=== PATIENT | female | born 1945 | race Caucasian/White ===

== ENCOUNTER 2017-09-04 19:55 | Observation (INO) | payer MEDICARE ==
[~2017-09-04] VITALS: Ht 157.5 cm; Wt 54.1 kg
[~2017-09-04 19:55] MED LIST: ACET600C PO; ASCO10007 PO; IRON150C5 PO; MULT-1085 PO; UBID50CA23 PO
[2017-09-04 21:10] LABS: BASOPHILS % (AUTO) 0.4 % (0-1); EOSINOPHILS % (AUTO) 0.3 % (0-6); HEMATOCRIT 31.4 % (35.0-45.0); HEMOGLOBIN 10.4 g/dl (12.0-16.0); LYMPHOCYTES # (AUTO) 1.2 X10'3 (1.1-4.8); LYMPHOCYTES % (AUTO) 13.2 % (21-51); MEAN CORPUSCULAR HEMOGLOBIN 27.7 PG (27.0-31.0); MEAN PLATELET VOLUME 8.3 FL (7.4-10.4); MONOCYTES # (AUTO) 0.5 X10'3 (0-0.9); MONOCYTES % (AUTO) 5.3 % (2-12); NEUTROPHILS # (AUTO) 7.3 X10'3 (1.8-7.7); NEUTROPHILS % (AUTO) 80.8 % (42-75); PLATELET COUNT 312 X10'3 (140-440); RED BLOOD COUNT 3.73 X10'6 (4.20-5.60); RED CELL DISTRIBUTION WIDTH 28.6 % (11.5-14.5)
[2017-09-04 21:25] LABS: ALANINE AMINOTRANSFERASE 205 U/L (12-78); ALBUMIN 2.8 G/DL (3.4-5.0); ALBUMIN/GLOBULIN RATIO 0.6 (1.1-1.5); ALKALINE PHOSPHATASE 370 IU/L (46-116); ANION GAP 10 (8-16); ASPARTATE AMINO TRANSFERASE 155 U/L (10-37); BILIRUBIN,TOTAL 0.9 MG/DL (0.1-1.0); BLOOD UREA NITROGEN 19 MG/DL (7-18); BUN/CREATININE RATIO 23.8 (6.6-38.0); CALCIUM 8.4 MG/DL (8.5-10.1); CHLORIDE 99 MMOL/L (99-107); D-DIMER 3.18 MG/L FEU (0-0.50); GLUCOSE 130 MG/DL (70-104); PARTIAL THROMBOPLASTIN TIME 25 SECONDS (22-32); POTASSIUM 4.1 MMOL/L (3.5-5.1); PROTHROMBIN TIME 10.8 SECONDS (9.0-12.0); SODIUM 132 MMOL/L (135-145); TOTAL CARBON DIOXIDE 22.8 MMOL/L (24-32); TOTAL PROTEIN 7.4 G/DL (6.4-8.2); eGFR 70 ML/MIN
[2017-09-04 21:44] LABS: CLARITY,URINE Cloudy (Clear); COLOR,URINE Yellow (Yellow); GLUCOSE, URINE Negative (Neg); KETONES,URINE Negative (Neg); LEUKOCYTE ESTERASE ,URINE Moderate (Neg); NITRITES, URINE Negative (Neg); OCCULT BLOOD,URINE Negative (Neg); PH,URINE 7.5 (4.8-8.0); PROTEIN,URINE Negative (Neg)
[2017-09-04] MEDS ORDERED: iohexol 350MG/ML 100ml bottle IV ONE (21:44)
[2017-09-04 21:54] LABS: LIPASE 127 U/L (73-393)
[2017-09-04 21:56] LABS: UA COLLECTION TYPE CLN CATCH MIDSTREAM
[2017-09-04 22:01] LABS: BACTERIA,URINE 4+ /HPF (Neg); RBC,URINE NONE SEEN /HPF (0-2); SQUAMOUS EPITHELIAL CELL,UR FEW /LPF (FEW); WBC CLUMPS,URINE FEW /HPF (NEGATIVE); WBC,URINE 20-30 /HPF (0-4)
[2017-09-04 22:22] LABS: ANISOCYTOSIS 3+; PLATELET ESTIMATE NORMAL
[2017-09-04 22:25] LABS: HYPOCHROMASIA 2+; MICROCYTOSIS 2+; POLYCHROMASIA FEW; TARGET CELLS 1+
[2017-09-05] MEDS ORDERED: potassium Cl 20 mEq SR tablet PO PRN ×2 (00:30)
[2017-09-05] MEDS ORDERED: potassium Cl 40MEQ/NS 500ml 500 ML IV PRN ×2 (00:30)
[2017-09-05] MEDS ORDERED: ondansetron/PF 4mg/2ml inj IV PRN (00:30)
[2017-09-05] MEDS: normal saline 1000ml 1,000 ML IV SCH ×3 (00:47→15:13)
[2017-09-05] MEDS: CefTRIAXone/D5W-Rocephin 1gm 50 ML IV SCH ×2 (00:47→21:01)
[2017-09-05] MEDS: azithromycin 250mg tablet PO SCH ×2 (02:44→21:05)
[2017-09-05] MEDS: lactobacillus rhamnosus 10,000 MMU CELLS/CAPSULE PO SCH ×2 (08:00→21:05)
[2017-09-05] MEDS: K and/or MAG REPLACEMENT MC SCH (08:00)
[2017-09-05 12:17] VITALS: BP 147/68
[2017-09-05 20:00] VITALS: BP 147/64
[2017-09-05] MEDS: iron polysaccharide complex 150mg capsule PO SCH (21:04)
[2017-09-06] VITALS: BP 135/59
[2017-09-06 05:53] LABS: BASOPHILS % (AUTO) 0.2 % (0-1); EOSINOPHILS # (AUTO) 0.3 X10'3 (0-0.9); EOSINOPHILS % (AUTO) 3.9 % (0-6); HEMOGLOBIN 9.5 g/dl (12.0-16.0); LYMPHOCYTES # (AUTO) 3.1 X10'3 (1.1-4.8); LYMPHOCYTES % (AUTO) 37.8 % (21-51); MEAN CORPUSCULAR HEMOGLOBIN 28.3 PG (27.0-31.0); MEAN CORPUSCULAR HGB CONC 32.9 % (33.0-36.5); MEAN CORPUSCULAR VOLUME 86.1 FL (78-98); MEAN PLATELET VOLUME 9.4 FL (7.4-10.4); MONOCYTES # (AUTO) 0.6 X10'3 (0-0.9); MONOCYTES % (AUTO) 7.8 % (2-12); NEUTROPHILS # (AUTO) 4.2 X10'3 (1.8-7.7); NEUTROPHILS % (AUTO) 50.3 % (42-75); PLATELET COUNT 288 X10'3 (140-440); RED BLOOD COUNT 3.37 X10'6 (4.20-5.60); WHITE BLOOD COUNT 8.3 X10'3 (4.5-11.0)
[2017-09-06 06:04] LABS: ALBUMIN 2.7 G/DL (3.4-5.0); ANION GAP 8 (8-16); BLOOD UREA NITROGEN 16 MG/DL (7-18); BUN/CREATININE RATIO 21.6 (6.6-38.0); CALCIUM 9.1 MG/DL (8.5-10.1); CHLORIDE 106 MMOL/L (99-107); CREATININE 0.74 MG/DL (0.40-0.90); SODIUM 140 MMOL/L (135-145); TOTAL CARBON DIOXIDE 25.9 MMOL/L (24-32); eGFR 77 ML/MIN
[2017-09-06 06:06] LABS: GLUCOSE 90 MG/DL (70-104)
[2017-09-06 07:25] LABS: PLATELET ESTIMATE NORMAL
[2017-09-06 07:26] LABS: MICROCYTOSIS 1+; POLYCHROMASIA FEW
[2017-09-06 07:30] VITALS: BP 134/67
[2017-09-06] MEDS ORDERED: UBIDECARENONE 50 MG PO SCH (08:00)
[2017-09-06] MEDS: iron polysaccharide complex 150mg capsule PO SCH (08:00)
[2017-09-06] MEDS ORDERED: multivitamins, therapeutics tablet PO SCH (08:00)
[2017-09-06] MEDS: K and/or MAG REPLACEMENT MC SCH (08:00)
[2017-09-06] MEDS: lactobacillus rhamnosus 10,000 MMU CELLS/CAPSULE PO SCH (09:39)
[2017-09-06] MEDS ORDERED: CEPH250T PO (11:28)
[2017-09-06 11:42] LABS: FERRITIN 40 NG/ML (8-252)
[2017-09-06 13:27] LABS: HBSAG SCREEN Negative (Negative); HEP A AB, IGM Negative (Negative); HEP B CORE AB, IGM Negative (Negative); HEPATITIS C ANTIBODY <0.1 s/co ratio (0.0-0.9)
== END 2017-09-06 12:15 | disposition home or self-care (01) ==
LOC: ER 19:55 → ED HOLD 09-05 00:27 → EDBEDREQ 09-05 11:23 → SUR 3N 09-05 11:47
PROVIDERS: ADMIT Family Medicine; ATTEND Internal Medicine
DX: N39.0 Urinary tract infection, site not specified (principal); R53.83 Other fatigue; E87.1 Hypo-osmolality and hyponatremia; R79.89 Other specified abnormal findings of blood chemistry; E88.09 Other disorders of plasma-protein metabolism, not elsewhere classified; D64.9 Anemia, unspecified; R59.0 Localized enlarged lymph nodes; J84.10 Pulmonary fibrosis, unspecified; Z87.891 Personal history of nicotine dependence; Z90.710 Acquired absence of both cervix and uterus; Z87.11 Personal history of peptic ulcer disease; Z82.3 Family history of stroke; Z80.9 Family history of malignant neoplasm, unspecified; Z82.5 Family history of asthma and other chronic lower respiratory diseases
CPT/HCPCS: 36415; 71045; 71275; 76700; 80048; 80053; 80074; 81001; 82728; 83690; 83880; 84466; 84484; 85025; 85379; 85610; 85730; 87070; 87088; 87502; 87503; 96361; 96365; 96366; 99285; G0378; J0696; J7030; Q9967

== ENCOUNTER 2017-10-06 13:06 | Inpatient (IN) | payer MEDICARE ==
[2017-10-06] VITALS (7 sets, daily range): BP systolic 131–170; BP diastolic 71–88
[~2017-10-06] VITALS: Ht 5116.1 cm; Wt 56.5 kg
[~2017-10-06 13:06] MED LIST changes: +CEPH250T PO; -IRON150C5 PO
[2017-10-06 14:24] LABS: BASOPHILS % (AUTO) 0.5 % (0-1); EOSINOPHILS # (AUTO) 0.3 X10'3 (0-0.9); EOSINOPHILS % (AUTO) 3.3 % (0-6); HEMATOCRIT 23.5 % (35.0-45.0); HEMOGLOBIN 7.5 g/dl (12.0-16.0); LYMPHOCYTES # (AUTO) 3.3 X10'3 (1.1-4.8); LYMPHOCYTES % (AUTO) 37.9 % (21-51); MEAN CORPUSCULAR HEMOGLOBIN 25.4 PG (27.0-31.0); MEAN CORPUSCULAR VOLUME 79.3 FL (78-98); MEAN PLATELET VOLUME 8.4 FL (7.4-10.4); MONOCYTES # (AUTO) 0.9 X10'3 (0-0.9); MONOCYTES % (AUTO) 10.2 % (2-12); NEUTROPHILS # (AUTO) 4.1 X10'3 (1.8-7.7); NEUTROPHILS % (AUTO) 48.1 % (42-75); PLATELET COUNT 431 X10'3 (140-440); RED BLOOD COUNT 2.97 X10'6 (4.20-5.60); RED CELL DISTRIBUTION WIDTH 23.4 % (11.5-14.5); WHITE BLOOD COUNT 8.6 X10'3 (4.5-11.0)
[2017-10-06 14:34] LABS: PARTIAL THROMBOPLASTIN TIME 23 SECONDS (22-32); PROTHROMBIN TIME 10.2 SECONDS (9.0-12.0)
[2017-10-06 14:40] LABS: CLARITY,URINE SLIGHTLY CLOUDY (Clear); COLOR,URINE YELLOW (Yellow); GLUCOSE, URINE NEGATIVE (Neg); KETONES,URINE NEGATIVE (Neg); LEUKOCYTE ESTERASE ,URINE LARGE (Neg); NITRITES, URINE POSITIVE (Neg); OCCULT BLOOD,URINE TRACE-INTACT (Neg); PH,URINE 6.5 (4.8-8.0); PROTEIN,URINE NEGATIVE (Neg); UROBILINOGEN,URINE 0.2 E.U/dL (0.2-1.0)
[2017-10-06 14:41] LABS: ALANINE AMINOTRANSFERASE 168 U/L (12-78); ALBUMIN/GLOBULIN RATIO 0.7 (1.1-1.5); ALKALINE PHOSPHATASE 261 IU/L (46-116); ANION GAP 8 (8-16); ASPARTATE AMINO TRANSFERASE 107 U/L (10-37); BILIRUBIN,TOTAL 0.3 MG/DL (0.1-1.0); BLOOD UREA NITROGEN 25 MG/DL (7-18); BUN/CREATININE RATIO 34.2 (6.6-38.0); CALCIUM 9.2 MG/DL (8.5-10.1); CHLORIDE 99 MMOL/L (99-107); CREATININE 0.73 MG/DL (0.40-0.90); GLUCOSE 118 MG/DL (70-104); POTASSIUM 4.2 MMOL/L (3.5-5.1); SODIUM 135 MMOL/L (135-145); TOTAL CARBON DIOXIDE 28.2 MMOL/L (24-32); TOTAL PROTEIN 7.3 G/DL (6.4-8.2); eGFR 78 ML/MIN
[2017-10-06 14:47] LABS: BACTERIA,URINE 3+ /HPF (Neg); MUCUS STRANDS NONE SEEN /LPF (Neg); RBC,URINE 0-2 /HPF (0-2); SQUAMOUS EPITHELIAL CELL,UR NONE SEEN /LPF (FEW); UA COLLECTION TYPE VOIDED; WBC,URINE 50-100 /HPF (0-4)
[2017-10-06] MEDS ORDERED: pantoprazole 40 MG vial IV ONE (15:05)
[2017-10-06] MEDS ORDERED: fentaNYL/PF 50MCG/1 ML 2ML syringe ONE (15:53)
[2017-10-06] MEDS ORDERED: MIDAZolam 5mg/5ml vial ONE (15:53)
[2017-10-06] MEDS ORDERED: LIDOcaine Viscous 15ml cup ONE (15:54)
[2017-10-06] MEDS ORDERED: ondansetron/PF 4mg/2ml inj IV PRN (17:25)
[2017-10-06] MEDS ORDERED: acetaminophen 325mg tablet PO PRN (17:25)
[2017-10-06] MEDS ORDERED: magnesium hydroxide 30ml (MOM) UD suspension PO PRN (17:25)
[2017-10-06] MEDS ORDERED: morphine 4 MG/ML inj SYRINge IV PRN ×2 (17:25)
[2017-10-06] MEDS ORDERED: mag hydrox/Alum hydrox/simeth 30ml oral suspension PO PRN (17:25)
[2017-10-06] MEDS: normal saline 1000ml 1,000 ML IV SCH (19:06)
[2017-10-06] MEDS: pantoprazole 40 MG vial IV SCH (20:16)
[2017-10-06] MEDS: acetylcysteine 200 MG/ml 4ml vial PO SCH (21:51)
[2017-10-07] VITALS (12 sets, daily range): BP systolic 93–147; BP diastolic 50–74
[2017-10-07] MEDS: normal saline 1000ml 1,000 ML IV SCH ×3 (02:21→20:00)
[2017-10-07 05:28] LABS: BASOPHILS # (AUTO) 0.1 X10'3 (0-0.2); BASOPHILS % (AUTO) 0.7 % (0-1); EOSINOPHILS # (AUTO) 0.3 X10'3 (0-0.9); EOSINOPHILS % (AUTO) 4.4 % (0-6); LYMPHOCYTES # (AUTO) 2.9 X10'3 (1.1-4.8); LYMPHOCYTES % (AUTO) 38.2 % (21-51); MEAN CORPUSCULAR HEMOGLOBIN 25.8 PG (27.0-31.0); MEAN CORPUSCULAR HGB CONC 32.2 % (33.0-36.5); MEAN PLATELET VOLUME 8.4 FL (7.4-10.4); MONOCYTES # (AUTO) 0.6 X10'3 (0-0.9); MONOCYTES % (AUTO) 7.4 % (2-12); NEUTROPHILS # (AUTO) 3.8 X10'3 (1.8-7.7); NEUTROPHILS % (AUTO) 49.3 % (42-75); PLATELET COUNT 364 X10'3 (140-440); RED BLOOD COUNT 2.52 X10'6 (4.20-5.60); RED CELL DISTRIBUTION WIDTH 23.3 % (11.5-14.5); WHITE BLOOD COUNT 7.7 X10'3 (4.5-11.0)
[2017-10-07 05:38] LABS: HEMATOCRIT 20.1 % (35.0-45.0); HEMOGLOBIN 6.5 g/dl (12.0-16.0)
[2017-10-07 05:57] LABS: ALBUMIN 2.6 G/DL (3.4-5.0); ANION GAP 6 (8-16); BLOOD UREA NITROGEN 13 MG/DL (7-18); BUN/CREATININE RATIO 17.8 (6.6-38.0); CALCIUM 8.7 MG/DL (8.5-10.1); CHLORIDE 106 MMOL/L (99-107); CREATININE 0.73 MG/DL (0.40-0.90); GLUCOSE 95 MG/DL (70-104); POTASSIUM 4.3 MMOL/L (3.5-5.1); SODIUM 140 MMOL/L (135-145); TOTAL CARBON DIOXIDE 27.8 MMOL/L (24-32); eGFR 78 ML/MIN
[2017-10-07] MEDS ORDERED: UBIDECARENONE 50 MG PO SCH (08:00)
[2017-10-07] MEDS: multivitamins, therapeutics tablet PO SCH (08:20)
[2017-10-07] MEDS: acetylcysteine 200 MG/ml 4ml vial PO SCH (08:20)
[2017-10-07] MEDS: pantoprazole 40 MG vial IV SCH ×2 (08:20→19:44)
[2017-10-07] MEDS: levoFLOXACIN-Levaquin 500mg/D5 100 ML IV SCH (15:43)
[2017-10-07 19:34] LABS: HEMATOCRIT 31.2 % (35.0-45.0); HEMOGLOBIN 10.1 g/dl (12.0-16.0); MEAN CORPUSCULAR HEMOGLOBIN 26.6 PG (27.0-31.0); MEAN CORPUSCULAR HGB CONC 32.2 % (33.0-36.5); MEAN CORPUSCULAR VOLUME 82.8 FL (78-98); MEAN PLATELET VOLUME 7.8 FL (7.4-10.4); PLATELET COUNT 374 X10'3 (140-440); RED BLOOD COUNT 3.77 X10'6 (4.20-5.60); RED CELL DISTRIBUTION WIDTH 21.1 % (11.5-14.5); WHITE BLOOD COUNT 7.2 X10'3 (4.5-11.0)
[2017-10-07] MEDS: zolpidem 5mg tablet PO PRN (21:12)
[2017-10-08] VITALS: BP 130/54
[2017-10-08] MEDS: normal saline 1000ml 1,000 ML IV SCH ×2 (03:57→15:16)
[2017-10-08 05:18] LABS: BASOPHILS % (AUTO) 0.5 % (0-1); EOSINOPHILS # (AUTO) 0.3 X10'3 (0-0.9); EOSINOPHILS % (AUTO) 4.5 % (0-6); HEMATOCRIT 30.5 % (35.0-45.0); HEMOGLOBIN 9.9 g/dl (12.0-16.0); LYMPHOCYTES # (AUTO) 2.4 X10'3 (1.1-4.8); LYMPHOCYTES % (AUTO) 34.7 % (21-51); MEAN CORPUSCULAR HEMOGLOBIN 26.8 PG (27.0-31.0); MEAN CORPUSCULAR HGB CONC 32.6 % (33.0-36.5); MEAN CORPUSCULAR VOLUME 82.3 FL (78-98); MEAN PLATELET VOLUME 8.4 FL (7.4-10.4); MONOCYTES # (AUTO) 0.6 X10'3 (0-0.9); MONOCYTES % (AUTO) 8.9 % (2-12); NEUTROPHILS # (AUTO) 3.6 X10'3 (1.8-7.7); NEUTROPHILS % (AUTO) 51.4 % (42-75); PLATELET COUNT 359 X10'3 (140-440); RED BLOOD COUNT 3.71 X10'6 (4.20-5.60); RED CELL DISTRIBUTION WIDTH 21.1 % (11.5-14.5); WHITE BLOOD COUNT 6.9 X10'3 (4.5-11.0)
[2017-10-08 05:41] LABS: ALBUMIN 2.7 G/DL (3.4-5.0); ANION GAP 9 (8-16); BLOOD UREA NITROGEN 7 MG/DL (7-18); BUN/CREATININE RATIO 10.1 (6.6-38.0); CHLORIDE 105 MMOL/L (99-107); CREATININE 0.69 MG/DL (0.40-0.90); GLUCOSE 88 MG/DL (70-104); POTASSIUM 3.7 MMOL/L (3.5-5.1); SODIUM 140 MMOL/L (135-145); eGFR 83 ML/MIN
[2017-10-08 07:00] VITALS: BP 135/70
[2017-10-08] MEDS: multivitamins, therapeutics tablet PO SCH (08:06)
[2017-10-08] MEDS: pantoprazole 40 MG vial IV SCH ×2 (08:06→19:27)
[2017-10-08] MEDS: levoFLOXACIN-Levaquin 500mg/D5 100 ML IV SCH (08:06)
[2017-10-08 11:00] VITALS: BP 155/75
[2017-10-08 20:00] VITALS: BP 148/61
[2017-10-08] MEDS: zolpidem 5mg tablet PO PRN (21:06)
[2017-10-09] VITALS: BP 142/79
[2017-10-09] MEDS: normal saline 1000ml 1,000 ML IV SCH (02:27)
[2017-10-09 05:55] LABS: % IRON SATURATION 4 % (11-46); IRON 20 UG/DL (49-151); TOTAL IRON BINDING CAPACITY 461 UG/DL (259-388)
[2017-10-09 06:12] LABS: ALANINE AMINOTRANSFERASE 146 U/L (12-78); ALBUMIN 2.8 G/DL (3.4-5.0); ALBUMIN/GLOBULIN RATIO 0.7 (1.1-1.5); ALKALINE PHOSPHATASE 288 IU/L (46-116); ANION GAP 10 (8-16); ASPARTATE AMINO TRANSFERASE 101 U/L (10-37); BILIRUBIN,TOTAL 0.6 MG/DL (0.1-1.0); BLOOD UREA NITROGEN 9 MG/DL (7-18); BUN/CREATININE RATIO 12.3 (6.6-38.0); CHLORIDE 103 MMOL/L (99-107); CREATININE 0.73 MG/DL (0.40-0.90); FERRITIN 18 NG/ML (8-252); GLUCOSE 93 MG/DL (70-104); POTASSIUM 3.6 MMOL/L (3.5-5.1); SODIUM 138 MMOL/L (135-145); TOTAL PROTEIN 6.7 G/DL (6.4-8.2); eGFR 78 ML/MIN
[2017-10-09 06:35] LABS: BASOPHILS % (AUTO) 0.5 % (0-1); EOSINOPHILS # (AUTO) 0.3 X10'3 (0-0.9); EOSINOPHILS % (AUTO) 3.5 % (0-6); HEMOGLOBIN 9.9 g/dl (12.0-16.0); LYMPHOCYTES # (AUTO) 2.8 X10'3 (1.1-4.8); LYMPHOCYTES % (AUTO) 34.8 % (21-51); MEAN CORPUSCULAR HEMOGLOBIN 26.5 PG (27.0-31.0); MEAN CORPUSCULAR VOLUME 82.6 FL (78-98); MEAN PLATELET VOLUME 8.8 FL (7.4-10.4); MONOCYTES # (AUTO) 0.7 X10'3 (0-0.9); MONOCYTES % (AUTO) 8.8 % (2-12); NEUTROPHILS # (AUTO) 4.3 X10'3 (1.8-7.7); NEUTROPHILS % (AUTO) 52.4 % (42-75); PLATELET COUNT 378 X10'3 (140-440); RED BLOOD COUNT 3.75 X10'6 (4.20-5.60); RED CELL DISTRIBUTION WIDTH 20.6 % (11.5-14.5); WHITE BLOOD COUNT 8.1 X10'3 (4.5-11.0)
[2017-10-09 07:30] VITALS: BP 133/64
[2017-10-09] MEDS: pantoprazole 40 MG vial IV SCH (07:48)
[2017-10-09] MEDS: levoFLOXACIN-Levaquin 500mg/D5 100 ML IV SCH (07:48)
[2017-10-09] MEDS: multivitamins, therapeutics tablet PO SCH (07:48)
[2017-10-09] MEDS ORDERED: iron sucrose complex injection 300 MG in normal saline 250ml IV soln 235 ML IV STA (07:50)
[2017-10-09 11:24] VITALS: BP 129/60
[2017-10-09] MEDS ORDERED: FERR324T4 PO (11:34)
[2017-10-09] MEDS ORDERED: PANT-47 PO (11:34)
[2017-10-09] MEDS ORDERED: LEVO750T46 PO (11:34)
[2017-10-09] MEDS ORDERED: lactobacillus rhamnosus 10,000 MMU CELLS/CAPSULE PO SCH (20:00)
[2017-10-11 08:56] LABS: OCCULT BLOOD STOOL POSITIVE (Neg)
== END 2017-10-09 14:17 | disposition home or self-care (01) | DRG 378 ==
LOC: ER 13:07 → ED HOLD 17:25 → EDBEDREQ 20:33 → EDBEDREQTM 20:33 → SUR 3N 21:17
PROVIDERS: ADMIT Family Medicine; ATTEND Family Medicine
PROC: 0DB68ZX Excision of Stomach, Via Natural or Artificial Opening Endoscopic, Diagnostic (ICD-10-PCS; 2017-10-06)
PROC: 30233N1 Transfusion of Nonautologous Red Blood Cells into Peripheral Vein, Percutaneous Approach (ICD-10-PCS; principal; 2017-10-07)
DX: K25.4 Chronic or unspecified gastric ulcer with hemorrhage (principal); D62 Acute posthemorrhagic anemia; J84.10 Pulmonary fibrosis, unspecified; N39.0 Urinary tract infection, site not specified; K22.10 Ulcer of esophagus without bleeding; R74.0 Nonspecific elevation of levels of transaminase and lactic acid dehydrogenase [LDH]; K29.70 Gastritis, unspecified, without bleeding; B96.89 Other specified bacterial agents as the cause of diseases classified elsewhere; K44.9 Diaphragmatic hernia without obstruction or gangrene; Z90.710 Acquired absence of both cervix and uterus; Z90.49 Acquired absence of other specified parts of digestive tract; Z87.11 Personal history of peptic ulcer disease; Z87.19 Personal history of other diseases of the digestive system; Z87.891 Personal history of nicotine dependence; Z80.9 Family history of malignant neoplasm, unspecified
CPT/HCPCS: 36415; 43239; 80048; 80053; 81001; 82272; 82728; 83540; 83550; 85025; 85027; 85610; 85730; 86870; 86885; 86900; 86901; 86902; 86920; 86922; 87070; 87077; 87088; 87186; 88305; 88313; 88342; 93005; 96374; 99285; A4620; A6258; C9113; G0500; J1956; J2250; J3010; J7030; P9016

== ENCOUNTER 2018-02-22 15:13 | Inpatient (IN) | payer MEDICARE ==
[~2018-02-22] VITALS: Ht 157.5 cm; Wt 55.0 kg
[~2018-02-22 15:13] MED LIST changes: -ASCO10007 PO; -CEPH250T PO; +FERR324T4 PO; +PANT-47 PO
[2018-02-22 15:50] LABS: BASOPHILS % (AUTO) 0.3 % (0-1); EOSINOPHILS # (AUTO) 0.4 X10'3 (0-0.9); EOSINOPHILS % (AUTO) 5.4 % (0-6); HEMATOCRIT 22.2 % (35.0-45.0); LYMPHOCYTES # (AUTO) 2.7 X10'3 (1.1-4.8); LYMPHOCYTES % (AUTO) 35.6 % (21-51); MEAN CORPUSCULAR HGB CONC 31.5 % (33.0-36.5); MEAN PLATELET VOLUME 7.3 FL (7.4-10.4); MONOCYTES # (AUTO) 0.7 X10'3 (0-0.9); NEUTROPHILS # (AUTO) 3.8 X10'3 (1.8-7.7); NEUTROPHILS % (AUTO) 49.7 % (42-75); PLATELET COUNT 530 X10'3 (140-440); RED BLOOD COUNT 3.17 X10'6 (4.20-5.60); RED CELL DISTRIBUTION WIDTH 19.3 % (11.5-14.5); WHITE BLOOD COUNT 7.7 X10'3 (4.5-11.0)
[2018-02-22 16:08] LABS: ALANINE AMINOTRANSFERASE 56 U/L (12-78); ALBUMIN/GLOBULIN RATIO 0.7 (1.1-1.5); ALKALINE PHOSPHATASE 226 IU/L (46-116); ANION GAP 6 (8-16); ASPARTATE AMINO TRANSFERASE 40 U/L (10-37); BILIRUBIN,TOTAL 0.2 MG/DL (0.1-1.0); BLOOD UREA NITROGEN 17 MG/DL (7-18); BUN/CREATININE RATIO 19.5 (6.6-38.0); CALCIUM 8.9 MG/DL (8.5-10.1); CHLORIDE 99 MMOL/L (99-107); CREATININE 0.87 MG/DL (0.40-0.90); GLUCOSE 98 MG/DL (70-104); POTASSIUM 4.2 MMOL/L (3.5-5.1); SODIUM 136 MMOL/L (135-145); TOTAL CARBON DIOXIDE 30.9 MMOL/L (24-32); TOTAL PROTEIN 7.5 G/DL (6.4-8.2); eGFR 64 ML/MIN
[2018-02-22 16:21] LABS: ANISOCYTOSIS 2+; MICROCYTOSIS 2+; PARTIAL THROMBOPLASTIN TIME 23 SECONDS (22-32); PLATELET ESTIMATE INCREASED; PROTHROMBIN TIME 10.1 SECONDS (9.0-12.0)
[2018-02-22 16:22] LABS: HYPOCHROMASIA 2+; SCHISTOCYTES FEW; STOMATOCYTES 1+
[2018-02-22 17:49] LABS: CLARITY,URINE SLIGHTLY CLOUDY (Clear); COLOR,URINE YELLOW (Yellow); GLUCOSE, URINE NEGATIVE (Neg); KETONES,URINE NEGATIVE (Neg); LEUKOCYTE ESTERASE ,URINE SMALL (Neg); NITRITES, URINE NEGATIVE (Neg); OCCULT BLOOD,URINE NEGATIVE (Neg); PROTEIN,URINE NEGATIVE (Neg); UROBILINOGEN,URINE 0.2 E.U/dL (0.2-1.0)
[2018-02-22 17:52] LABS: UA COLLECTION TYPE CLN CATCH MIDSTREAM
[2018-02-22 17:58] LABS: SQUAMOUS EPITHELIAL CELL,UR FEW /LPF (FEW)
[2018-02-22 18:00] LABS: BACTERIA,URINE 2+ /HPF (Neg); RBC,URINE 0-2 /HPF (0-2)
[2018-02-22] MEDS ORDERED: magnesium 1gm/100ml D5W IVPB 100 ML IV PRN (18:45)
[2018-02-22] MEDS ORDERED: potassium Cl 40MEQ/NS 500ml 500 ML IV PRN ×2 (18:45)
[2018-02-22] MEDS ORDERED: morphine 2 MG/ML inj. syringe IV PRN (18:45)
[2018-02-22] MEDS ORDERED: ondansetron/PF 4mg/2ml inj IV PRN (18:45)
[2018-02-22] MEDS ORDERED: potassium Cl 20 mEq SR tablet PO PRN ×2 (18:45)
[2018-02-22] MEDS ORDERED: magnesium 4gm in 100ml NS 100 ML IV PRN (18:45)
[2018-02-22] MEDS ORDERED: magnesium Cl slow-release 64mg tablet PO PRN (18:45)
[2018-02-22] MEDS ORDERED: diphenhydrAMINE 25mg capsule PO PRN (18:45)
[2018-02-22] MEDS ORDERED: acetaminophen 325mg tablet PO PRN ×2 (18:45)
[2018-02-22] MEDS ORDERED: PANT40TA4 PO (19:09)
[2018-02-22 19:25] VITALS: BP 155/80
[2018-02-22] MEDS ORDERED: fentaNYL/PF 50MCG/1 ML 2ML syringe ONE (19:25)
[2018-02-22] MEDS ORDERED: LIDOcaine Viscous 15ml cup ONE (19:26)
[2018-02-22] MEDS ORDERED: MIDAZolam 5mg/5ml vial ONE (19:26)
[2018-02-22 19:39] VITALS: BP 155/80
[2018-02-22 19:49] VITALS: BP 150/79
[2018-02-22 19:59] VITALS: BP 142/86
[2018-02-22 20:09] VITALS: BP 148/80
[2018-02-22] MEDS ORDERED: iohexol 300mg/ml 100ml inj. ONE (20:17)
[2018-02-22] MEDS ORDERED: temazepam 15mg capsule PO PRN (21:00)
[2018-02-22] MEDS: pantoprazole 40MG/NS 100ML BAG 100 ML IV SCH (21:02)
[2018-02-22] MEDS: normal saline 1000ml 1,000 ML IV SCH (21:02)
[2018-02-23] VITALS (13 sets, daily range): BP systolic 115–159; BP diastolic 65–89
[2018-02-23] MEDS: pantoprazole 40MG/NS 100ML BAG 100 ML IV SCH ×5 (01:42→22:03)
[2018-02-23 05:08] LABS: BASOPHILS % (AUTO) 0.5 % (0-1); EOSINOPHILS # (AUTO) 0.3 X10'3 (0-0.9); EOSINOPHILS % (AUTO) 4.1 % (0-6); LYMPHOCYTES # (AUTO) 2.4 X10'3 (1.1-4.8); LYMPHOCYTES % (AUTO) 30.6 % (21-51); MEAN CORPUSCULAR HGB CONC 31.5 % (33.0-36.5); MEAN CORPUSCULAR VOLUME 69.7 FL (78-98); MEAN PLATELET VOLUME 7.5 FL (7.4-10.4); MONOCYTES # (AUTO) 0.8 X10'3 (0-0.9); NEUTROPHILS # (AUTO) 4.3 X10'3 (1.8-7.7); NEUTROPHILS % (AUTO) 54.8 % (42-75); PLATELET COUNT 501 X10'3 (140-440); RED BLOOD COUNT 2.96 X10'6 (4.20-5.60); RED CELL DISTRIBUTION WIDTH 18.9 % (11.5-14.5); WHITE BLOOD COUNT 7.8 X10'3 (4.5-11.0)
[2018-02-23 05:16] LABS: HEMATOCRIT 20.7 % (35.0-45.0); HEMOGLOBIN 6.5 g/dl (12.0-16.0)
[2018-02-23 05:30] LABS: ALBUMIN 2.8 G/DL (3.4-5.0); ANION GAP 6 (8-16); BLOOD UREA NITROGEN 11 MG/DL (7-18); BUN/CREATININE RATIO 14.1 (6.6-38.0); CALCIUM 8.8 MG/DL (8.5-10.1); CHLORIDE 102 MMOL/L (99-107); CREATININE 0.78 MG/DL (0.40-0.90); MAGNESIUM 2.1 MG/DL (1.5-2.4); POTASSIUM 3.7 MMOL/L (3.5-5.1); SODIUM 137 MMOL/L (135-145); eGFR 72 ML/MIN
[2018-02-23 06:08] LABS: GLUCOSE 102 MG/DL (70-104)
[2018-02-23 07:05] LABS: ANISOCYTOSIS 2+; HYPOCHROMASIA 2+; MICROCYTOSIS 2+; PLATELET ESTIMATE INCREASED; STOMATOCYTES FEW
[2018-02-23] MEDS: K and/or MAG REPLACEMENT MC SCH (07:21)
[2018-02-23] MEDS: CefTRIAXone 2gm/D5W 50ml 50 ML IV SCH (07:32)
[2018-02-23] MEDS: normal saline 1000ml 1,000 ML IV SCH ×2 (08:51→20:04)
[2018-02-23] MEDS: HYDROcodone/acetaminophen 5mg/325mg tablet PO PRN ×2 (12:04→20:12)
[2018-02-23 20:52] LABS: OCCULT BLOOD STOOL POSITIVE (Neg)
[2018-02-23 21:05] LABS: BASOPHILS # (AUTO) 0.1 X10'3 (0-0.2); BASOPHILS % (AUTO) 0.9 % (0-1); EOSINOPHILS # (AUTO) 0.4 X10'3 (0-0.9); EOSINOPHILS % (AUTO) 4.6 % (0-6); HEMATOCRIT 31.1 % (35.0-45.0); LYMPHOCYTES # (AUTO) 1.5 X10'3 (1.1-4.8); LYMPHOCYTES % (AUTO) 17.4 % (21-51); MEAN CORPUSCULAR HEMOGLOBIN 24.9 PG (27.0-31.0); MEAN CORPUSCULAR HGB CONC 32.1 % (33.0-36.5); MEAN CORPUSCULAR VOLUME 77.7 FL (78-98); MEAN PLATELET VOLUME 7.5 FL (7.4-10.4); MONOCYTES # (AUTO) 0.7 X10'3 (0-0.9); MONOCYTES % (AUTO) 7.8 % (2-12); NEUTROPHILS # (AUTO) 6.1 X10'3 (1.8-7.7); NEUTROPHILS % (AUTO) 69.3 % (42-75); PLATELET COUNT 473 X10'3 (140-440); RED CELL DISTRIBUTION WIDTH 23.5 % (11.5-14.5); WHITE BLOOD COUNT 8.9 X10'3 (4.5-11.0)
[2018-02-24] VITALS: BP 141/76
[2018-02-24] MEDS: pantoprazole 40MG/NS 100ML BAG 100 ML IV SCH ×3 (01:00→11:00)
[2018-02-24] MEDS: normal saline 1000ml 1,000 ML IV SCH (02:42)
[2018-02-24 05:11] LABS: BASOPHILS # (AUTO) 0.1 X10'3 (0-0.2); BASOPHILS % (AUTO) 0.8 % (0-1); EOSINOPHILS # (AUTO) 0.5 X10'3 (0-0.9); HEMATOCRIT 30.7 % (35.0-45.0); MEAN CORPUSCULAR HEMOGLOBIN 25.3 PG (27.0-31.0); MEAN CORPUSCULAR HGB CONC 32.6 % (33.0-36.5); MEAN CORPUSCULAR VOLUME 77.7 FL (78-98); MEAN PLATELET VOLUME 8.3 FL (7.4-10.4); MONOCYTES # (AUTO) 0.7 X10'3 (0-0.9); MONOCYTES % (AUTO) 7.8 % (2-12); NEUTROPHILS # (AUTO) 6.1 X10'3 (1.8-7.7); NEUTROPHILS % (AUTO) 65.4 % (42-75); PLATELET COUNT 487 X10'3 (140-440); RED BLOOD COUNT 3.96 X10'6 (4.20-5.60); RED CELL DISTRIBUTION WIDTH 23.6 % (11.5-14.5); WHITE BLOOD COUNT 9.4 X10'3 (4.5-11.0)
[2018-02-24 05:26] LABS: ALBUMIN 2.8 G/DL (3.4-5.0); ANION GAP 7 (8-16); BLOOD UREA NITROGEN 8 MG/DL (7-18); BUN/CREATININE RATIO 10.1 (6.6-38.0); CALCIUM 8.9 MG/DL (8.5-10.1); CHLORIDE 103 MMOL/L (99-107); CREATININE 0.79 MG/DL (0.40-0.90); GLUCOSE 89 MG/DL (70-104); MAGNESIUM 1.8 MG/DL (1.5-2.4); SODIUM 136 MMOL/L (135-145); TOTAL CARBON DIOXIDE 26.5 MMOL/L (24-32); eGFR 71 ML/MIN
[2018-02-24] MEDS: CefTRIAXone 2gm/D5W 50ml 50 ML IV SCH (07:35)
[2018-02-24 07:40] VITALS: BP 149/84
[2018-02-24] MEDS ORDERED: lactobacillus rhamnosus 10,000 MMU CELLS/CAPSULE PO SCH (08:00)
[2018-02-24] MEDS: K and/or MAG REPLACEMENT MC SCH (08:00)
[2018-02-24 10:50] VITALS: BP 149/80
[2018-02-24] MEDS: HYDROcodone/acetaminophen 5mg/325mg tablet PO PRN (11:27)
[2018-02-24] MEDS ORDERED: PANT40TA4 PO (12:14)
== END 2018-02-24 13:53 | disposition home or self-care (01) | DRG 378 ==
LOC: ER 15:14 → ED HOLD 18:42 → SUR 3N 23:10
PROVIDERS: ADMIT Internal Medicine; ATTEND Internal Medicine
PROC: BW211ZZ Computerized Tomography (CT Scan) of Abdomen and Pelvis using Low Osmolar Contrast (ICD-10-PCS; 2018-02-22)
PROC: 0DB68ZX Excision of Stomach, Via Natural or Artificial Opening Endoscopic, Diagnostic (ICD-10-PCS; 2018-02-22)
PROC: 30233N1 Transfusion of Nonautologous Red Blood Cells into Peripheral Vein, Percutaneous Approach (ICD-10-PCS; principal; 2018-02-23)
DX: K92.2 Gastrointestinal hemorrhage, unspecified (principal); N39.0 Urinary tract infection, site not specified; D62 Acute posthemorrhagic anemia; J84.10 Pulmonary fibrosis, unspecified; K22.70 Barrett's esophagus without dysplasia; R03.0 Elevated blood-pressure reading, without diagnosis of hypertension; K29.70 Gastritis, unspecified, without bleeding; K31.9 Disease of stomach and duodenum, unspecified; K44.9 Diaphragmatic hernia without obstruction or gangrene; Z66 Do not resuscitate; Z90.710 Acquired absence of both cervix and uterus; Z90.49 Acquired absence of other specified parts of digestive tract; Z79.899 Other long term (current) drug therapy; Z87.19 Personal history of other diseases of the digestive system; Z80.9 Family history of malignant neoplasm, unspecified
CPT/HCPCS: 36415; 43239; 71045; 74177; 80048; 80053; 81001; 82272; 83735; 84484; 85025; 85610; 85730; 86870; 86880; 86885; 86900; 86901; 86902; 86905; 86920; 86922; 87070; 87077; 87088; 87186; 94760; 99285; A4620; A6258; C9113; G0500; J0696; J2250; J3010; J7030; P9016; Q9967

== ENCOUNTER 2018-02-26 11:05 | Outpatient (CLI) | payer MEDICARE ==
[~2018-02-26 11:05] MED LIST changes: -ACET600C PO; -FERR324T4 PO; -MULT-1085 PO; -PANT-47 PO; +PANT40TA4 PO; -UBID50CA23 PO
[2018-02-26 12:31] LABS: BASOPHILS % (AUTO) 0.4 % (0-1); EOSINOPHILS # (AUTO) 0.4 X10'3 (0-0.9); EOSINOPHILS % (AUTO) 3.3 % (0-6); HEMATOCRIT 30.8 % (35.0-45.0); HEMOGLOBIN 10.1 g/dl (12.0-16.0); LYMPHOCYTES # (AUTO) 2.7 X10'3 (1.1-4.8); LYMPHOCYTES % (AUTO) 24.9 % (21-51); MEAN CORPUSCULAR HEMOGLOBIN 25.3 PG (27.0-31.0); MEAN CORPUSCULAR HGB CONC 32.9 % (33.0-36.5); MEAN CORPUSCULAR VOLUME 77.1 FL (78-98); MEAN PLATELET VOLUME 8.3 FL (7.4-10.4); MONOCYTES # (AUTO) 1.2 X10'3 (0-0.9); MONOCYTES % (AUTO) 11.2 % (2-12); NEUTROPHILS # (AUTO) 6.6 X10'3 (1.8-7.7); NEUTROPHILS % (AUTO) 60.2 % (42-75); PLATELET COUNT 513 X10'3 (140-440); RED CELL DISTRIBUTION WIDTH 24.9 % (11.5-14.5)
== END 2018-02-26 23:59 | disposition home or self-care (01) ==
LOC: LAB 11:05
PROVIDERS: ATTEND Internal Medicine
DX: K22.70 Barrett's esophagus without dysplasia (principal); K29.30 Chronic superficial gastritis without bleeding; K20.9 Esophagitis, unspecified; F10.20 Alcohol dependence, uncomplicated; Z87.891 Personal history of nicotine dependence; Z90.710 Acquired absence of both cervix and uterus
CPT/HCPCS: 36415; 85025

== ENCOUNTER 2018-08-07 10:21 | Inpatient (IN) | payer MEDICARE | END 2018-08-10 13:56 | disposition home health service (06) | LOC: ER 10:21 → ED HOLD 11:28 → PCU 3S 15:50 | DX: J84.10 Pulmonary fibrosis, unspecified (principal); J96.00 Acute respiratory failure, unspecified whether with hypoxia or hypercapnia; E87.1 Hypo-osmolality and hyponatremia; N18.9 Chronic kidney disease, unspecified; R59.0 Localized enlarged lymph nodes ==

== ENCOUNTER 2018-08-28 14:47 | Emergency (ER) | payer MEDICARE ==
[~2018-08-28] VITALS: Ht 157.5 cm; Wt 52.0 kg
[~2018-08-28 14:47] MED LIST changes: +ALBU6.7H INH; +FERR325T28 PO; +PRED10TA23 PO
[2018-08-28 14:50] VITALS: BP 147/84
[2018-08-28 15:21] LABS: BASOPHILS # (AUTO) 0.1 X10'3 (0-0.2); BASOPHILS % (AUTO) 0.7 % (0-1); EOSINOPHILS # (AUTO) 0.5 X10'3 (0-0.9); EOSINOPHILS % (AUTO) 6.6 % (0-6); HEMATOCRIT 28.8 % (35.0-45.0); HEMOGLOBIN 9.2 g/dl (12.0-16.0); LYMPHOCYTES # (AUTO) 2.6 X10'3 (1.1-4.8); MEAN CORPUSCULAR HEMOGLOBIN 24.4 PG (27.0-31.0); MEAN CORPUSCULAR HGB CONC 31.8 g/dL (33.0-36.5); MEAN CORPUSCULAR VOLUME 76.6 FL (78-98); MONOCYTES # (AUTO) 0.9 X10'3 (0-0.9); MONOCYTES % (AUTO) 10.8 % (2-12); NEUTROPHILS # (AUTO) 4.2 X10'3 (1.8-7.7); NEUTROPHILS % (AUTO) 50.9 % (42-75); PLATELET COUNT 390 X10'3 (140-440); RED BLOOD COUNT 3.77 X10'6 (4.20-5.60); RED CELL DISTRIBUTION WIDTH 17.8 % (11.5-14.5); WHITE BLOOD COUNT 8.2 X10'3 (4.5-11.0)
[2018-08-28 15:34] LABS: INR 1.1 INR; PARTIAL THROMBOPLASTIN TIME 26 SECONDS (22-32); PROTHROMBIN TIME 10.9 SECONDS (9.0-12.0)
[2018-08-28 15:36] LABS: ALANINE AMINOTRANSFERASE 55 U/L (12-78); ALBUMIN 2.8 G/DL (3.4-5.0); ALBUMIN/GLOBULIN RATIO 0.8 (1.1-1.5); ALKALINE PHOSPHATASE 145 IU/L (46-116); ANION GAP 9 (8-16); ASPARTATE AMINO TRANSFERASE 38 U/L (10-37); BILIRUBIN,TOTAL 0.4 MG/DL (0.1-1.0); BLOOD UREA NITROGEN 15 MG/DL (7-18); BUN/CREATININE RATIO 21.1 (6.6-38.0); CALCIUM 8.5 MG/DL (8.5-10.1); CHLORIDE 102 MMOL/L (99-107); CREATININE 0.71 MG/DL (0.40-0.90); GLUCOSE 97 MG/DL (70-104); POTASSIUM 3.9 MMOL/L (3.5-5.1); SODIUM 138 MMOL/L (135-145); TOTAL CARBON DIOXIDE 26.6 MMOL/L (24-32); TOTAL PROTEIN 6.3 G/DL (6.4-8.2); eGFR 80 ML/MIN
[2018-08-28] MEDS ORDERED: methylPREDNISolone sod succ 125mg/2ml vial IV ONE (16:15)
[2018-08-28] MEDS ORDERED: normal saline 1000ML IV soln IVB ONE (16:15)
[2018-08-28] MEDS ORDERED: PRED10TA23 PO (17:20)
== END 2018-08-28 18:36 | disposition home or self-care (01) ==
LOC: ER 14:47
DX: J96.20 Acute and chronic respiratory failure, unspecified whether with hypoxia or hypercapnia (principal); J84.10 Pulmonary fibrosis, unspecified; Z79.899 Other long term (current) drug therapy; Z90.49 Acquired absence of other specified parts of digestive tract; Z90.710 Acquired absence of both cervix and uterus
CPT/HCPCS: 36415; 71045; 80053; 84484; 85025; 85610; 85730; 93005; 96374; 99284; J2930; J7030